=== PATIENT | male | born 1980 ===

== ENCOUNTER → 2018-09-25 | Outpatient (REF) | payer OTHER ==
[2018-09-25 12:53] LABS: TESTOSTERONE 495 NG/DL (241-827)
[2018-09-29 08:19] LABS: TESTOSTERONE %FREE+WEAKLY BOUN 22.6 % (9.0-46.0); TESTOSTERONE TOTAL 571 ng/dL (264-916)
== END ==
LOC: M LABDRAW1 08:47
DX: E29.1 Testicular hypofunction (principal)
CPT/HCPCS: 84403